=== PATIENT | female | born 1990 | race Two or more races ===

== ENCOUNTER 2016-10-20 12:40 | Emergency (ER) | payer OTHER ==
[~2016-10-20 12:40] MED LIST: ALBUTEROL17 GM INH; BACTRIM DS TABL1 TA1 PO; BENZONATATE PO; BIRTH CONTROL PILL; BIRTH CONTROL PILL PO; BROMFED DM PO; CLARITIN10 M1 PO; DELTASONE20 MG PO; ELOCON 0.1% OIN15 GM TOP; ELOCON15 G1 TP; FLONASE 0.05% N16 G1; IBUPROFEN800 MG PO; IRON1 TAB; MEDROL DOSEPAK4 MG PO; METFORMIN HCL1000 M1 PO; METFORMIN PO; NO MEDICATIONS; PREDNISONE50 MG PO; PRENA1 CHEW TA1.4 MG; PYRIDIUM PO; TESSALON200 MG PO; VOLTAREN50 MG PO; VOLTAREN75 MG PO; ZITHROMAX PO; ZYRTEC10 M2 PO
[2016-10-20] MEDS ORDERED: METFORMIN PO (12:49)
[2016-10-20] MEDS ORDERED: BIRTH CONTROL PILLS (12:49)
[2016-10-20 13:02] LABS: URINE SOURCE CLEAN CATCH
[2016-10-20 13:06] LABS: URINE APPEARANCE CLOUDY; URINE BILIRUBIN NEG (NEG); URINE BLOOD 3+ (NEG); URINE COLOR RED; URINE GLUCOSE NEG (NORM); URINE KETONE TRACE (NEG); URINE LEUKOCYTE ESTERASE 2+ (NEG); URINE NITRATE POS (NEG); URINE PROTEIN 3+ (NEG); URINE SPECIFIC GRAVITY 1.025 (1.003-1.035)
[2016-10-20 13:07] LABS: MICRO INDICATED? YES
[2016-10-20 13:15] LABS: URINE RBC INNUM /[HPF] (0-2)
[2016-10-20 13:16] LABS: CULTURE INDICATED? YES; URINE BACTERIA 1+ (NEG); URINE SQUAMOUS EPITHELIAL CELL OCCAS /[HPF]; URINE TRANSITIONAL EPI CELLS FEW /[HPF]
== END 2016-10-20 13:54 | disposition home or self-care (01) ==
LOC: SED 12:40
PROVIDERS: Emergency Medicine
DX: N30.01 Acute cystitis with hematuria (principal); R11.0 Nausea; E28.2 Polycystic ovarian syndrome; Z91.040 Latex allergy status; Z79.899 Other long term (current) drug therapy
CPT/HCPCS: 81003; 84703; 87086; 99283

== ENCOUNTER 2016-12-26 15:53 | Emergency (ER) | payer OTHER ==
[~2016-12-26 15:53] MED LIST changes: +BIRTH CONTROL PILLS
[2016-12-26 17:23] LABS: BASOPHIL# 0.1 X10e3 (0-0.3); EOSINOPHIL# 0.2 X10e3 (0-0.7); EOSINOPHIL% 2.1 % (0.0-7.0); HEMATOCRIT 38.2 % (35.0-45.0); HEMOGLOBIN 13.2 gm/dL (12.0-16.0); LYMPHOCYTE# 3.6 X10e3 (1.0-3.5); LYMPHOCYTE% 29.9 % (17.0-45.0); MEAN CELL VOLUME 84.6 FL (83-96); MEAN CORPUSCULAR HEMOGLOBIN 29.1 PG (28-34); MEAN CORPUSCULAR HGB CONC 34.5 g/dL (30-36); MONOCYTE# 0.9 X10e3 (0-1.0); MONOCYTE% 7.9 % (3.0-12.0); NEUTROPHIL% 59.1 % (40-75); PLATELET COUNT 329 X10e3 (140-420); RED BLOOD COUNT 4.52 X10e (3.90-5.30); RED CELL DISTRIBUTION WIDTH 13.5 % (11.0-15.5); WHITE BLOOD COUNT 11.9 X10e3 (4.0-10.5)
[2016-12-26 17:24] LABS: DIFF IND NO
[2016-12-26 17:37] LABS: URINE SOURCE CLEAN CATCH
[2016-12-26 17:38] LABS: URINE APPEARANCE CLEAR; URINE BILIRUBIN NEG (NEG); URINE BLOOD 1+ (NEG); URINE COLOR YELLOW; URINE GLUCOSE NEG (NORM); URINE LEUKOCYTE ESTERASE NEG (NEG); URINE NITRATE NEG (NEG); URINE PH 5.5 (5-8); URINE PROTEIN NEG (NEG); URINE SPECIFIC GRAVITY >=1.030 (1.003-1.035); URINE UROBILINOGEN 0.2 MG/DL (NORM)
[2016-12-26 17:39] LABS: MICRO INDICATED? YES; URINE KETONE 2+ (NEG)
[2016-12-26 17:40] LABS: CULTURE INDICATED? YES; URINE AMORPHOUS SEDIMENT AMORP URATES; URINE BACTERIA 1+ (NEG); URINE MUCUS PRESENT; URINE SQUAMOUS EPITHELIAL CELL MODERATE /[HPF]
[2016-12-26 17:44] LABS: ALBUMIN SERUM 4.2 g/dL (3.5-5.0); ALKALINE PHOSPHATASE 60 U/L (32-92); ALT (SGPT) 56 U/L (10-40); AST (SGOT) 42 U/L (10-42); BILIRUBIN, DIRECT 0.1 mg/dL (0.0-0.2); BILIRUBIN,INDIRECT 1.1 mg/dL (0.0-0.9); BILIRUBIN,TOTAL 1.2 mg/dL (0.2-2.0); CALCIUM SERUM 9.2 mg/dL (8.4-10.2); CARBON DIOXIDE 26 mmol/L (22-31); CHLORIDE 102 mmol/L (100-111); CREATININE SERUM 0.5 mg/dL (0.6-1.4); GLOM FILT RATE Estimated 131.7 mL/min (>60); GLUCOSE FASTING 100 mg/dL (70-110); LIPASE 25 U/L (22-51); POTASSIUM 3.7 mmol/L (3.5-5.1); PROTEIN TOTAL SERUM 8.3 g/dL (6.0-8.3); SODIUM 139 mmol/L (135-145)
[2016-12-26 17:58] LABS: BLOOD UREA NITROGEN <5 mg/dL (9-23)
== END 2016-12-26 19:10 | disposition home or self-care (01) ==
LOC: SED 15:53
PROVIDERS: Emergency Medicine
DX: K29.00 Acute gastritis without bleeding (principal); F31.9 Bipolar disorder, unspecified; Z91.040 Latex allergy status
CPT/HCPCS: 36415; 80048; 80076; 81003; 83690; 84703; 85025; 87086; 96361; 96374; 96375; 99284; J2765